=== PATIENT | male | born 1970 | race Caucasian/White ===

== ENCOUNTER 2023-02-05 09:13 | Outpatient (CLI) | payer OTHER | END 2023-02-05 09:22 | disposition home or self-care (01) | LOC: EDSEX 09:13 → RX STUDY 09:13 | PROVIDERS: ATTEND Otolaryngology | DX: R13.19 Other dysphagia (principal) ==

== ENCOUNTER 2023-02-06 08:42 | Outpatient (CLI) | payer OTHER | END 2023-02-06 08:50 | disposition home or self-care (01) | LOC: RX STUDY 08:42 | PROVIDERS: ATTEND Otolaryngology | DX: R13.10 Dysphagia, unspecified (principal) ==